=== PATIENT | male | born 1965 | race Caucasian/White ===

== ENCOUNTER 2024-12-12 16:00 | Emergency (ER) | payer OTHER, SELFPAY ==
[2024-12-12 16:02] VITALS: BP 123/75; PULSE 81; RESP 17; TEMP 36.6; O2SAT 97; BMI 23.0
--- NOTE | 2024-12-12 16:06 | CTR_ITS ---
PROCEDURE INFORMATION: Exam: CT Head Without Contrast Exam date and time: 12/12/2024 4:18 PM Age: 59 years old Clinical indication: Syncope and collapse TECHNIQUE: Imaging protocol: Computed tomography of the head without contrast. Radiation optimization: All CT scans at this facility use at least one of these dose optimization techniques: automated exposure control; mA and/or kV adjustment per patient size (includes targeted exams where dose is matched to clinical indication); or iterative reconstruction. COMPARISON: No relevant prior studies available. RADIATION DOSE METRICS: Total DLP (mGy-cm): 1126.58 FINDINGS: Brain: Normal. No hemorrhage. Unremarkable white matter. No mass effect. Cerebral ventricles: No ventriculomegaly. Paranasal sinuses: Visualized sinuses are unremarkable. No fluid levels. Mastoid air cells: Visualized mastoid air cells are well aerated. Bones: Unremarkable. No acute fracture. Soft tissues: Unremarkable. CT/CT head wo con* [id number] IMPRESSION: No acute intracranial abnormality.
--- NOTE | 2024-12-12 16:07 | ED_ITS ---
HPI - Syncope 2 General: Chief Complaint: Syncope Stated Complaint: Seizure Time Seen by Provider: 12/12/24 16:04 Source: patient and EMS Mode of arrival: EMS Limitations: no limitations History of Present Illness: 59-year-old male states that he is here on vacation states he been drinking beer today states he had 4-5 beers he states he then smoked marijuana states he felt extremely high and states the next he knew he was on the ground and he woke up. Bystanders were concerned he might have a seizure he states I think I passed out he states when he awoke he was awake and alert did not have any postictal period. He denies any headache or chest pain states that he feels fine currently. Associated symptoms: Deny abdominal pain, chest pain, fever(s), headache(s) or nausea Related Data Allergies Allergy/AdvReac Type Severity Reaction Status Date / Time No Known Allergies Allergy Verified 12/12/24 16:09 Review of Systems 2 Const: Denies: fever(s), chills, body aches or change in appetite Eyes: Denies: blurry vision or eye discomfort ENMT: Denies: throat pain or dental pain Card: Reports: syncope; Denies: chest pain Resp: Denies: dyspnea GI: Denies: abdominal pain, nausea, vomiting or diarrhea Musc: Denies: neck pain or back pain Skin/Breast: Denies: rash Neuro: Denies: headache(s) Physical Exam 2 Const: COMMON NORMALS: no acute distress, patient oriented x3 and healthy appearing HENMT: COMMON NORMALS: normocephalic and atraumatic HEAD & SCALP: n ormocephalic and atraumatic Eye: COMMON NORMALS: Equal, round and reactive pupils present and EOMs intact bilaterally PUPIL: Yes Equal, round and reactive pupils present Neck/C-Spine: COMMON NORMALS: full ROM and supple Chest: COMMONS NORMALS: normal inspection of the chest Resp: COMMON NORMALS: normal respiratory effort, No retractions, No use of accessory muscles and clear to auscultation bilaterally AUSCULTATION: clear to auscultation bilaterally Cardio: COMMON NORMALS: regular rate, regular rhythm and No murmurs present (Cardio) RATE: regular rate RHYTHM: regular rhythm Extremity: COMMON NORMALS: normal to inspection and full ROM Neuro: COMMON NORMALS: patient oriented x3, moves all extremities and no focal motor deficits Psych: COMMON NORMALS: mental status grossly normal, Normal thought process present and cooperative THOUGHT PROCESS: Normal thought process present Skin: COMMON NORMALS: no rashes or lesions noted and no wounds GENERAL SKIN EXAM: no rashes or lesions noted Course 2 Vital Signs: Vital signs: Vital Signs Temperature 97.8 F 12/12/24 16:02 Pulse Rate 81 12/12/24 16:02 Respiratory Rate 17 12/12/24 16:02 Blood Pressure 123/75 12/12/24 16:02 Pulse Oximetry 97 12/12/24 16:02 Oxygen Delivery Me thod Room Air 12/12/24 16:02 MDM - Syncope Medical Decision Making Patient presents here with a syncopal event he is well-appearing here likely from marijuana drinking no signs of an actual seizure blood work head CT are normal follow-up with PCP return if worsening Medical Records I reviewed the patient's medical records. Lab Data I reviewed the patient's lab results. 12/12/24 15:33 12/12/24 15:[address] 12/12/24 16:06 IMPRESSION: No acute intracranial abnormality. Laboratory Results WBC 9.20 10^3/uL (3.29-11.43) 12/12/24 15:33 RBC 4.03 10^6/uL (3.85-5.65) 12/12/24 15:33 Hgb 13.50 g/dL (11.27-16.99) 12/12/24 15:33 Hct 39.6 % (37-53) 12/12/24 15:33 MCV 98.3 fl (82-101) 12/12/24 15:33 MCH 33.5 pg (27-33) H 12/12/24 15:33 MCHC 34.1 g/dL (30-55) 12/12/24 15:33 RDW 11.8 % (12.1-15.1) L 12/12/24 15:33 Plt Count 318 10^3/cmm (157-399) 12/12/24 15:33 MPV 9.2 fL (7.4-10.4) 12/12/24 15:33 Neut % (Auto) 43.6 % 12/12/24 15:33 Lymph % (Auto) 43.7 % 12/12/24 15:33 Irwin % (Auto) 10.8 % 12/12/24 15:33 Eos % (Auto) 0.8 % 12/12/24 15:33 Baso % (Auto) 0.7 % 12/12/24 15:33 Neut # (Auto) 4.02 10^3/uL (1.8-7.7) 12/12/24 15:33 Lymph # (Auto) 4.0 10^3/uL (0.8-4.8) 12/12/24 15:33 Irwin # (Auto) 1.0 10^3/uL (0.2-0.9) H 12/12/24 15:33 Eos # (Auto) 0.1 10^3/uL (0.0-0.8) 12/12/24 15:33 Baso # (Auto) 0.1 10^3/uL (0.0-0.1) 12/12/24 15:33 Nucleated RBC % (auto) 0 % 12/12/24 15:33 Nucleated RBCs # 0.0 /100WBC 12/12/24 15:33 Sodium 134 mmol/L (136-145) L 12/12/24 15:33 Potassium 3.3 mmol/L (3.5-5.1) L 12/12/24 15:33 Chloride 97 mmol/L (98-107) L 12/12/24 15:33 Carbon Dioxide 23 mmol/L (22-29) 12/12/24 15:33 Anion Gap 17.3 (5-19) 12/12/24 15:33 BUN 9 mg/dL (6-20) 12/12/24 15:33 Creatinine 0.8 mg/dL (0.7-1.2) 12/12/24 15:33 GFR Calculation 99.3 mL/min (90-130) 12/12/24 15:33 Glucose 141 mg/dL (65-115) H 12/12/24 15:33 Calculated Osmolality 279 mOsm/kg (285-295) L 12/12/24 15:33 Calcium 8.4 mg/dL (8.5-10.5) L 12/12/24 15:33 Total Bilirubin 0.4 mg/dL (0.15-1.2) 12/12/24 15:33 AST 26 U/L (0-40) 12/12/24 15:33 ALT 31 U/L (0-41) 12/12/24 15:33 Alkaline Phosphatase 100 U/L (40-130) 12/12/24 15:33 Total Protein 7.1 g/dL (6.6-8.7) 12/12/24 15:33 Albumin 4.2 g/dL (3.5-5.2) 12/12/24 15:33 Globulin 2.9 g/dL (1.3-4.6) 12/12/24 15:33 All radiology interpretation(s) finalized by discharge EKG Data EKG 1: I personally reviewed and interpreted this EKG as follows: EKG interpretation date: 12/12/24 EKG interpretation time: 16:13 Interpretation: nsr hr [address] elevation qrs 96 qtc 402 Discharge Plan Discharge Patient Disposition: Home Clinical Impression: Syncope Condition: Stable Discharge Orders: Discharge ED (Routine); Ordered 12/12/24 Ordered By: Idris Vitale Discharge Diet: Advance as tolerated Discharge Activity: Resume usual activity Patient Instructions: Syncope (ED) Print Language: Spanish Coding Level of Care Code ED Public Relations Director for Leonorg Chalo
--- NOTE | 2024-12-12 16:13 | ECG_ITS ---
[facility] Date: 2024-12-12 Pat Name: Ministerio Vega Department: Room: Gender: Male [place]: : 1965 Requested By: Idris Vitale Order Number: [id number] Edenilson MD: Jas Raymond M.D. Measurements Intervals [place] Rate: 75 P: 50 AL: 172 QRS: 28 QRSD: 96 T: 74 QT: 374 QTc: 418 Interpretive Statements SINUS RHYTHM NONSPECIFIC T-WAVE ABNORMALITY No previous ECG available for comparison Electronically Signed On 12-12-2024 16:24:03 CDT by Jas Raymond M.D. [email or web address]
[2024-12-12 16:16] LABS: Basophils # 0.1 10^3/uL (0.0-0.1); Basophils % 0.7 %; Eosinophils # 0.1 10^3/uL (0.0-0.8); Eosinophils % 0.8 %; Hematocrit 39.6 % (37-53); Lymphocytes % 43.7 %; Mean Corpuscular HGB Conc 34.1 g/dL (30-55); Mean Corpuscular Hemoglobin 33.5 pg (27-33); Mean Corpuscular Volume 98.3 fl (82-101); Mean Platelet Volume 9.2 fL (7.4-10.4); Monocytes % 10.8 %; Neutrophils # 4.02 10^3/uL (1.8-7.7); Neutrophils % 43.6 %; Nucleated Red Blood Cells % 0 %; Platelet Count 318 10^3/cmm (157-399); Red Blood Count 4.03 10^6/uL (3.85-5.65); Red Cell Distribution Width 11.8 % (12.1-15.1)
[2024-12-12 16:45] LABS: Alanine Aminotransferase 31 U/L (0-41); Albumin Level 4.2 g/dL (3.5-5.2); Alkaline Phosphatase 100 U/L (40-130); Anion Gap 17.3 (5-19); Aspartate Amino Transferase 26 U/L (0-40); Blood Urea Nitrogen 9 mg/dL (6-20); Calcium 8.4 mg/dL (8.5-10.5); Carbon Dioxide 23 mmol/L (22-29); Chloride 97 mmol/L (98-107); Creatinine Clr Calc Pharmacy 110.1938; Globulin 2.9 g/dL (1.3-4.6); Glomerular Filtration Rate 99.3 mL/min (90-130); Glucose 141 mg/dL (65-115); Osmolality Calculated 279 mOsm/kg (285-295); Potassium 3.3 mmol/L (3.5-5.1); Sodium 134 mmol/L (136-145); Total Bilirubin 0.4 mg/dL (0.15-1.2); Total Protein 7.1 g/dL (6.6-8.7)
[2024-12-12 17:35] VITALS: BP 128/79; PULSE 73; O2SAT 97
== END 2024-12-12 17:38 | disposition home or self-care (01) ==
PROVIDERS: Emergency Provider Emergency Medicine
DX: R55 Syncope and collapse (principal)
CPT/HCPCS: 70450; 80053; 85025; 93005; 99284